=== PATIENT | female | born 1935 | race Caucasian/White ===

== ENCOUNTER 2018-02-27 10:53 | Observation (INO) | payer BC, OTHER ==
[~2018-02-27] VITALS: Ht 160 cm; Wt 86.2 kg
--- NOTE | 2018-02-27 11:40 | PHYS DOC ---
Past Medical History Past Medical History: GERD, High Cholesterol, Hypertension Past Surgical History: Cholecystectomy Alcohol Use: Rarely Drug Use: None Adult General Chief Complaint Chief Complaint: DIZZY/LIGHT HEADED HPI HPI 82-year-old female presents to ER via POV with her granddaughter Estelita for complaints of waking this morning and having dizziness. Patient denies any chest pain, palpitations, headache, or vision changes. Yesterday she felt fine and had ran errands with her son. Patient reports she woke this morning around 8 :00 and has dizziness which increases with position changes. Patient reports when she sits down dizziness somewhat subsides but doesn't completely go away. Denies any recent illness or travel. Patient denies urinary symptoms. She denies fever or chills. Review of Systems Review of Systems Constitutional: Denies fever or chills [] Eyes: Denies change in visual acuity, redness, or eye pain [] HENT: Denies nasal congestion or sore throat [] Respiratory: Denies cough or shortness of breath [] Cardiovascular: No additional information not addressed in HPI [] GI: Denies abdominal pain, nausea, vomiting, bloody stools or diarrhea [] : Denies dysuria or hematuria [] Musculoskeletal: Denies back pain or joint pain [] Integument: Denies rash or skin lesions [] Neurologic: Denies headache, focal weakness or sensory changes [] Endocrine: Denies polyuria or polydipsia [] All other systems were reviewed and found to be within normal limits, except as documented in this note. Current Medications Current Medications Current Medications Medications (Trade) Dose Ordered Sig/[facility] Start Time Stop Time Status Last Admin Dose Admin Acetaminophen (Tylenol) 650 mg PRN Q6HRS PRN 02/27/18 14:00 UNV Al Hydroxide/Mg Hydroxide (Mylanta Plus Xs) 30 ml PRN Q3HRS PRN 02/27/18 14:00 UNV Bisacodyl (Dulcolax Supp) 10 mg PRN DAILY PRN 02/27/18 14:00 UNV Calcium Carbonate/ Glycine (Tums) 500 mg PRN Q3HRS PRN 02/27/18 14:00 UNV Diazepam (Valium) 2 mg 1X ONCE 02/27/18 14:15 02/27/18 14:16 DC Hydrochlorothiazide (Hydrodiuril) 25 mg DAILY 02/28/18 09:00 UNV Ibuprofen (Motrin) 400 mg PRN Q6HRS PRN 02/27/18 14:00 UNV Magnesium Hydroxide (Milk Of Magnesia) 2,400 mg PRN Q12HR PRN 02/27/18 14:00 UNV Meclizine HCl (Antivert) 25 mg PRN Q6HRS PRN 02/27/18 14:15 UNV Morphine Sulfate (Morphine Sulfate) 1 mg PRN Q1HR PRN 02/27/18 14:00 UNV Ondansetron HCl (Zofran) 4 mg PRN Q6HRS PRN 02/27/18 14:00 UNV Oxycodone HCl (Roxicodone) 5 mg PRN Q3HRS PRN 02/27/18 14:00 UNV Pantoprazole Sodium (Protonix) 40 mg DAILYAC 02/28/18 07:30 UNV Prochlorperazine (Compazine) 25 mg PRN Q12HR PRN 02/27/18 14:00 UNV Prochlorperazine Edisylate (Compazine) 10 mg PRN Q6HRS PRN 02/27/18 14:00 UNV Simvastatin (Zocor) 40 mg QHS 02/27/18 21:00 UNV Sodium Chloride 1,000 ml @ 1,000 mls/hr 1X ONCE 02/27/18 11:45 02/27/18 12:44 DC 02/27/18 12:32 1,000 MLS/HR Allergies Allergies Allergies Coded Allergies Type Severity Reaction Last Updated Verified Penicillins Allergy Intermediate Nausea and Vomiting 02/27/18 Yes shrimp Allergy Intermediate Nausea and Vomiting 02/27/18 Yes Physical Exam Physical Exam Constitutional: Well developed, well nourished, no acute distress, non-toxic appearance. [] HENT: Normocephalic, atraumatic, bilateral external ears normal, oropharynx moist, no oral exudates, nose normal. [] Eyes: PERRLA, EOMI, conjunctiva normal, no discharge. [] Neck: Normal range of motion, no tenderness, supple, no stridor. [] Cardiovascular:Heart rate regular rhythm, no murmur [] Lungs & Thorax: Bilateral breath sounds clear to auscultation [] Abdomen: Bowel sounds normal, soft, no tenderness, no masses, no pulsatile masses. [] Skin: Warm, dry, no erythema, no rash. [] Back: No tenderness, no CVA tenderness. [] Extremities: No tenderness, no cyanosis, no clubbing, ROM intact, no edema. [] Neurologic: Alert and oriented X 3, normal motor function, normal sensory function, no focal deficits noted. [] Psychologic: Affect normal, judgement normal, mood normal. [] Current Patient Data Vital Signs Vital Signs Date Time Temp Pulse Resp B/P (MAP) Pulse Ox O2 Delivery O2 Flow Rate FiO2 02/27/18 13:15 82 18 98 02/27/18 11:12 97.8 148/78 (101) Room Air 97.8 Lab Values Laboratory Tests Test 02/27/18 12:30 02/27/18 12:50 White Blood Count 5.3 x10^3/uL (4.0-11.0) Red Blood Count 4.85 x10^6/uL (3.50-5.40) Hemoglobin 15.2 g/dL (12.0-15.5) Hematocrit 44.8 % (36.0-47.0) Mean Corpuscular Volume 92 fL (79-100) Mean Corpuscular Hemoglobin 31 pg (25-35) Mean Corpuscular Hemoglobin Concent 34 g/dL (31-37) Red Cell Distribution Width 13.1 % (11.5-14.5) Platelet Count 211 x10^3/uL (140-400) Neutrophils (%) (Auto) 65 % (31-73) Lymphocytes (%) (Auto) 25 % (24-48) Monocytes (%) (Auto) 8 % (0-9) Eosinophils (%) (Auto) 2 % (0-3) Basophils (%) (Auto) 1 % (0-3) Neutrophils # (Auto) 3.4 x10^3uL (1.8-7.7) Lymphocytes # (Auto) 1.3 x10^3/uL (1.0-4.8) Monocytes # (Auto) 0.4 x10^3/uL (0.0-1.1) Eosinophils # (Auto) 0.1 x10^3/uL (0.0-0.7) Basophils # (Auto) 0.0 x10^3/uL (0.0-0.2) Sodium Level 142 mmol/L (136-145) Potassium Level 4.1 mmol/L (3.5-5.1) Chloride Level 103 mmol/L (98-107) Carbon Dioxide Level 30 mmol/L (21-32) Anion Gap 9 (6-14) Blood Urea Nitrogen 14 mg/dL (7-20) Creatinine 0.8 mg/dL (0.6-1.0) Estimated GFR (Cockcroft-Gault) 68.5 BUN/Creatinine Ratio 18 (6-20) Glucose Level 119 mg/dL (70-99) H Calcium Level 9.4 mg/dL (8.5-10.1) Magnesium Level 2.0 mg/dL (1.8-2.4) Total Bilirubin 0.7 mg/dL (0.2-1.0) Aspartate Amino Transferase (AST) 19 U/L (15-37) Alanine Aminotransferase (ALT) 25 U/L (14-59) Alkaline Phosphatase 63 U/L (46-116) Troponin I Quantitative < 0.017 ng/mL (0.000-0.055) Total Protein 7.5 g/dL (6.4-8.2) Albumin 3.8 g/dL (3.4-5.0) Albumin/Globulin Ratio 1.0 (1.0-1.7) Urine Collection Type Unknown Urine Color Yellow Urine Clarity Cloudy Urine pH 6.5 Urine Specific [place] 1.015 Urine Protein Negative mg/dL (NEG-TRACE) Urine Glucose (UA) Negative mg/dL (NEG) Urine Ketones (Stick) Negative mg/dL (NEG) Urine Blood Negative (NEG) Urine Nitrite Negative (NEG) Urine Bilirubin Negative (NEG) Urine Urobilinogen Dipstick 0.2 mg/dL (0.2 mg/dL) Urine Leukocyte Esterase Large (NEG) Urine RBC 1-2 /HPF (0-2) Urine WBC 5-10 /HPF (0-4) Urine Squamous Epithelial Cells Mod /LPF Urine Transitional Epithelial Cells Few /LPF Urine Renal Epithelial Cells Occ /LPF Urine Bacteria 0 /HPF (0-FEW) Laboratory Tests 02/27/18 12:30 Laboratory Tests 02/27/18 12:30 EKG EKG [] Radiology/Procedures Radiology/Procedures [] Course & Med Decision Making Course & Med Decision Making Pertinent Labs and Imaging studies reviewed. (See chart for details) [] Dragon Disclaimer Dragon Disclaimer This electronic medical record was generated, in whole or in part, using a voice recognition dictation system. Departure Departure Impression: Primary Impression: Dizziness Disposition: ADMITTED INPATIENT Admitting Physician: Jada Alvarenga Condition: STABLE Referrals: JESSY VALENZUELA MD (PCP) MARIBETH ARGUETA APRN Feb 27, 2018 11:40
[2018-02-27] MEDS ORDERED: IV NORMAL SALINE 1000ML BAG 1,000 ML IV ONE (11:45)
--- NOTE | 2018-02-27 12:04 | RAD ---
CT of the head without contrast, 02/27/2018: HISTORY: Dizziness There is mild cerebral atrophy. There are mild deep white matter lucencies bilaterally suggesting chronic ischemic change. The ventricles are within normal limits in size. There is no shift of the midline structures. There is no evidence of acute intracranial hemorrhage or mass effect. IMPRESSION: 1. Mild bilateral deep white matter lucencies compatible with chronic ischemic change. 2. No acute intracranial abnormality is detected. PQRS Compliance Statement: One or more of the following individualized dose reduction techniques were utilized for this examination: 1. Automated exposure control 2. Adjustment of the mA and/or kV according to patient size 3. Use of iterative reconstruction technique Electronically signed by: Everton Ochoa MD (02/27/2018 12:01 PM) [facility]
--- NOTE | 2018-02-27 12:14 | EKG ---
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
[2018-02-27 12:43] LABS: BASO % 1 % (0-3); EOS # 0.1 x10^3/uL (0.0-0.7); EOS % 2 % (0-3); HEMATOCRIT 44.8 % (36.0-47.0); HEMOGLOBIN 15.2 g/dL (12.0-15.5); LYMPH # 1.3 x10^3/uL (1.0-4.8); LYMPH % 25 % (24-48); MEAN CORPUSCULAR HEMOGLOBIN 31 pg (25-35); MEAN CORPUSCULAR HGB CONC 34 g/dL (31-37); MEAN CORPUSCULAR VOLUME 92 fL (79-100); MONO # 0.4 x10^3/uL (0.0-1.1); MONO % 8 % (0-9); NEUT # 3.4 x10^3uL (1.8-7.7); NEUT % 65 % (31-73); PLATELET COUNT 211 x10^3/uL (140-400); RED BLOOD COUNT 4.85 x10^6/uL (3.50-5.40); RED CELL DISTRIBUTION WIDTH 13.1 % (11.5-14.5); WHITE BLOOD COUNT 5.3 x10^3/uL (4.0-11.0)
[2018-02-27 13:00] LABS: BILIRUBIN,URINE NEGATIVE (NEG); CLARITY,URINE CLOUDY; COLOR,URINE YELLOW; NITRITE,URINE NEGATIVE (NEG); PH,URINE 6.5; PROTEIN,URINE NEGATIVE (NEG-TRACE); UROBILINOGEN,URINE 0.2 mg/dL (0.2 mg/dL)
[2018-02-27 13:10] LABS: CALCIUM 9.4 mg/dL (8.5-10.1); CREATININE 0.8 mg/dL (0.6-1.0); GFR 68.5; POTASSIUM 4.1 mmol/L (3.5-5.1)
[2018-02-27 13:12] LABS: BACTERIA,URINE 0 /HPF (0-FEW); SQUAMOUS EPITHELIAL CELL,UR MOD /LPF
[2018-02-27 13:15] LABS: ALBUMIN 3.8 g/dL (3.4-5.0); TOTAL BILIRUBIN 0.7 mg/dL (0.2-1.0); TOTAL PROTEIN 7.5 g/dL (6.4-8.2)
[2018-02-27] MEDS ORDERED: oxyCODONE IR 5 MG TABLET PO PRN (14:00)
[2018-02-27] MEDS ORDERED: MORPHINE SULFATE 2 MG/ML VIAL. IV PRN (14:00)
[2018-02-27] MEDS ORDERED: ACETAMINOPHEN 325 MG TABLET. PO PRN (14:00)
[2018-02-27] MEDS ORDERED: MECLIZINE HCL 12.5 MG TABLET. PO PRN ×2 (14:00→14:15)
[2018-02-27] MEDS ORDERED: BISACODYL 10 MG SUPP.RECT. PR PRN (14:00)
[2018-02-27] MEDS ORDERED: CALCIUM CARBONATE 500 MG TAB.CHEW PO PRN (14:00)
[2018-02-27] MEDS ORDERED: MAG HYDROX/ALUMINUM HYD/SIMETH 30 ML ORAL.SUSP PO PRN (14:00)
[2018-02-27] MEDS ORDERED: ONDANSETRON PF 4 MG/2 ML VIAL. IV PRN (14:00)
[2018-02-27] MEDS ORDERED: IBUPROFEN 400 MG TABLET. PO PRN (14:00)
[2018-02-27] MEDS ORDERED: PROCHLORPERAZINE 25 MG SUPP.RECT. PR PRN (14:00)
[2018-02-27] MEDS ORDERED: MAGNESIUM HYDROXIDE 2,400 MG/30 ML ORAL.SUSP. PO PRN (14:00)
[2018-02-27] MEDS ORDERED: PROCHLORPERAZINE 10 MG/2 ML VIAL. IV PRN (14:00)
--- NOTE | 2018-02-27 14:07 | PDOC1 ---
History and Physical Date of Admission Date of Admission DATE: 02/27/18 TIME: 14:03 Identification/Chief Complaint Chief Complaint Dizziness Source Source: Caregiver, Chart review, Patient History of Present Illness History of Present Illness 82-year-old female accompanied by granddaughter today, only takes 3 medications at home include HCTZ 25 simvastatin 40 and Nexium tablet, PCP Dr. Andrew Garsia, woke up today 8 AM dizzy. Nonvertiginous in nature. Looking at old records diagnosed with hearing loss on a hearing aid. Denies tinnitus but claims itchy ears. Has not seen an ENT. CT of the head and lab work is negative but still Dizzy hence admitted with neurology to consult. Denies high MSG or salt intake, does drink coffee but decaffeinated Past Medical History Cardiovascular: HTN, Hyperlipidemia Past Surgical History Past Surgical History: No pertinent history Family History Family History: Hypertension Social History Smoke: No ALCOHOL: none Drugs: None Current Medications Current Medications Current Medications Sodium Chloride 1,000 ml @ 1,000 mls/hr 1X ONCE IV Last administered on 02/27at 12:32; Start 02/27/18 at 11:45; Stop 02/27/18 at 12:44; Status DC Allergies Allergies: Coded Allergies: Penicillins (Verified Allergy, Intermediate, Nausea and Vomiting, 02/27/18 ) shrimp (Verified Allergy, Intermediate, Nausea and Vomiting, 02/27/18) ROS Review of System As per history of present illness, the rest of ROS 14 point negative Physical Exam General: Alert, Oriented X3, Cooperative, No acute distress HEENT: Atraumatic, PERRLA, EOMI Lungs: Clear to auscultation, Normal air movement Heart: S1S2, RRR, no thrills, no rubs, no gallops, no murmurs Cardiovascular: S1, S2 Breasts: Normal, Rt breast nml w/o mass, Lt breast nml w/o mass, Nipples normal Abdomen: Normal bowel sounds, Soft, No tenderness, No hepatosplenomegaly, No masses Rectal Exam: not examined PELVIC: Nml ext genitalia Extremities: No clubbing, No cyanosis, No edema, Normal pulses, No tenderness/ swelling Skin: No rashes, No breakdown, No significant lesion Neuro: Normal gait, Normal speech, Strength at 5/5 X4 ext, Normal tone, Sensation intact, Cranial nerves 3-12 NL, Reflexes 2+ Psych/Mental Status: Mental status NL, Mood NL Vitals Vitals Vital Signs Date Time Temp Pulse Resp B/P (MAP) Pulse Ox O2 Delivery O2 Flow Rate FiO2 02/27/18 13:15 82 18 98 02/27/18 11:12 97.8 148/78 (101) Room Air 97.8 Labs Labs Laboratory Tests Test 02/27/18 12:30 02/27/18 12:50 White Blood Count 5.3 x10^3/uL (4.0-11.0) Red Blood Count 4.85 x10^6/uL (3.50-5.40) Hemoglobin 15.2 g/dL (12.0-15.5) Hematocrit 44.8 % (36.0-47.0) Mean Corpuscular Volume 92 fL (79-100) Mean Corpuscular Hemoglobin 31 pg (25-35) Mean Corpuscular Hemoglobin Concent 34 g/dL (31-37) Red Cell Distribution Width 13.1 % (11.5-14.5) Platelet Count 211 x10^3/uL (140-400) Neutrophils (%) (Auto) 65 % (31-73) Lymphocytes (%) (Auto) 25 % (24-48) Monocytes (%) (Auto) 8 % (0-9) Eosinophils (%) (Auto) 2 % (0-3) Basophils (%) (Auto) 1 % (0-3) Neutrophils # (Auto) 3.4 x10^3uL (1.8-7.7) Lymphocytes # (Auto) 1.3 x10^3/uL (1.0-4.8) Monocytes # (Auto) 0.4 x10^3/uL (0.0-1.1) Eosinophils # (Auto) 0.1 x10^3/uL (0.0-0.7) Basophils # (Auto) 0.0 x10^3/uL (0.0-0.2) Sodium Level 142 mmol/L (136-145) Potassium Level 4.1 mmol/L (3.5-5.1) Chloride Level 103 mmol/L (98-107) Carbon Dioxide Level 30 mmol/L (21-32) Anion Gap 9 (6-14) Blood Urea Nitrogen 14 mg/dL (7-20) Creatinine 0.8 mg/dL (0.6-1.0) Estimated GFR (Cockcroft-Gault) 68.5 BUN/Creatinine Ratio 18 (6-20) Glucose Level 119 mg/dL (70-99) Calcium Level 9.4 mg/dL (8.5-10.1) Magnesium Level 2.0 mg/dL (1.8-2.4) Total Bilirubin 0.7 mg/dL (0.2-1.0) Aspartate Amino Transf (AST/SGOT) 19 U/L (15-37) Alanine Aminotransferase (ALT/SGPT) 25 U/L (14-59) Alkaline Phosphatase 63 U/L (46-116) Troponin I Quantitative < 0.017 ng/mL (0.000-0.055) Total Protein 7.5 g/dL (6.4-8.2) Albumin 3.8 g/dL (3.4-5.0) Albumin/Globulin Ratio 1.0 (1.0-1.7) Urine Collection Type Unknown Urine Color Yellow Urine Clarity Cloudy Urine pH 6.5 Urine Specific [place] 1.015 Urine Protein Negative mg/dL (NEG-TRACE) Urine Glucose (UA) Negative mg/dL (NEG) Urine Ketones (Stick) Negative mg/dL (NEG) Urine Blood Negative (NEG) Urine Nitrite Negative (NEG) Urine Bilirubin Negative (NEG) Urine Urobilinogen Dipstick 0.2 mg/dL (0.2 mg/dL) Urine Leukocyte Esterase Large (NEG) Urine RBC 1-2 /HPF (0-2) Urine WBC 5-10 /HPF (0-4) Urine Squamous Epithelial Cells Mod /LPF Urine Transitional Epithelial Cells Few /LPF Urine Renal Epithelial Cells Occ /LPF Urine Bacteria 0 /HPF (0-FEW) Laboratory Tests Test 02/27/18 12:30 02/27/18 12:50 White Blood Count 5.3 x10^3/uL (4.0-11.0) Red Blood Count 4.85 x10^6/uL (3.50-5.40) Hemoglobin 15.2 g/dL (12.0-15.5) Hematocrit 44.8 % (36.0-47.0) Mean Corpuscular Volume 92 fL (79-100) Mean Corpuscular Hemoglobin 31 pg (25-35) Mean Corpuscular Hemoglobin Concent 34 g/dL (31-37) Red Cell Distribution Width 13.1 % (11.5-14.5) Platelet Count 211 x10^3/uL (140-400) Neutrophils (%) (Auto) 65 % (31-73) Lymphocytes (%) (Auto) 25 % (24-48) Monocytes (%) (Auto) 8 % (0-9) Eosinophils (%) (Auto) 2 % (0-3) Basophils (%) (Auto) 1 % (0-3) Neutrophils # (Auto) 3.4 x10^3uL (1.8-7.7) Lymphocytes # (Auto) 1.3 x10^3/uL (1.0-4.8) Monocytes # (Auto) 0.4 x10^3/uL (0.0-1.1) Eosinophils # (Auto) 0.1 x10^3/uL (0.0-0.7) Basophils # (Auto) 0.0 x10^3/uL (0.0-0.2) Sodium Level 142 mmol/L (136-145) Potassium Level 4.1 mmol/L (3.5-5.1) Chloride Level 103 mmol/L (98-107) Carbon Dioxide Level 30 mmol/L (21-32) Anion Gap 9 (6-14) Blood Urea Nitrogen 14 mg/dL (7-20) Creatinine 0.8 mg/dL (0.6-1.0) Estimated GFR (Cockcroft-Gault) 68.5 BUN/Creatinine Ratio 18 (6-20) Glucose Level 119 mg/dL (70-99) Calcium Level 9.4 mg/dL (8.5-10.1) Magnesium Level 2.0 mg/dL (1.8-2.4) Total Bilirubin 0.7 mg/dL (0.2-1.0) Aspartate Amino Transf (AST/SGOT) 19 U/L (15-37) Alanine Aminotransferase (ALT/SGPT) 25 U/L (14-59) Alkaline Phosphatase 63 U/L (46-116) Troponin I Quantitative < 0.017 ng/mL (0.000-0.055) Total Protein 7.5 g/dL (6.4-8.2) Albumin 3.8 g/dL (3.4-5.0) Albumin/Globulin Ratio 1.0 (1.0-1.7) Urine Collection Type Unknown Urine Color Yellow Urine Clarity Cloudy Urine pH 6.5 Urine Specific [place] 1.015 Urine Protein Negative mg/dL (NEG-TRACE) Urine Glucose (UA) Negative mg/dL (NEG) Urine Ketones (Stick) Negative mg/dL (NEG) Urine Blood Negative (NEG) Urine Nitrite Negative (NEG) Urine Bilirubin Negative (NEG) Urine Urobilinogen Dipstick 0.2 mg/dL (0.2 mg/dL) Urine Leukocyte Esterase Large (NEG) Urine RBC 1-2 /HPF (0-2) Urine WBC 5-10 /HPF (0-4) Urine Squamous Epithelial Cells Mod /LPF Urine Transitional Epithelial Cells Few /LPF Urine Renal Epithelial Cells Occ /LPF Urine Bacteria 0 /HPF (0-FEW) VTE Prophylaxis Ordered VTE Prophylaxis Devices: Yes VTE Pharmacological Prophylaxi: Yes Assessment/Plan Assessment/Plan Dizziness with diagnosis of hearing loss-on hearing aid Differentials include Mnire's disease So far CT head is negative, blood pressure is okay Can check orthostatics Neurology consulted Continue HCTZ which can be part of Mnire's disease treatment Avoid high salt intake MSG or caffeinated drinks Denies any recent stresses in the family Hypertension, controlled Dyslipidemia on a statin GERD on nexium Penicillin allergy and shrimp allergy-unknown reaction Obesity BMI 34 Plan: as above Observation status If it is Mnire's, trial of low-dose benzodiazepine can sometimes be helpful RADHA BEJARANO MD Feb 27, 2018 14:07
[2018-02-27] MEDS ORDERED: diazePAM 2 MG TABLET PO ONE (14:15)
[2018-02-27 15:45] VITALS: BP 170/82
[2018-02-27] MEDS ORDERED: MULT1TAB52 PO (17:23)
[2018-02-27] MEDS ORDERED: ESOM20CA PO (17:23)
[2018-02-27] MEDS: PANTOPRAZOLE 40 MG TABLET.DR. PO SCH (17:51)
[2018-02-27] MEDS: hydroCHLOROthiazide 25 MG TABLET PO SCH (17:51)
[2018-02-27 19:00] VITALS: BP 144/63
[2018-02-27] MEDS ORDERED: SIMVASTATIN 40 MG TABLET. PO SCH (21:00)
[2018-02-27 23:00] VITALS: BP 126/67
[2018-02-28 03:00] VITALS: BP 109/50
[2018-02-28 05:59] LABS: CALCIUM 8.7 mg/dL (8.5-10.1); CREATININE 0.8 mg/dL (0.6-1.0); GFR 68.5; POTASSIUM 3.6 mmol/L (3.5-5.1)
[2018-02-28 06:04] LABS: BASO % 1 % (0-3); EOS # 0.1 x10^3/uL (0.0-0.7); EOS % 2 % (0-3); HEMATOCRIT 40.7 % (36.0-47.0); HEMOGLOBIN 13.9 g/dL (12.0-15.5); LYMPH # 1.8 x10^3/uL (1.0-4.8); LYMPH % 35 % (24-48); MEAN CORPUSCULAR HEMOGLOBIN 31 pg (25-35); MEAN CORPUSCULAR HGB CONC 34 g/dL (31-37); MEAN CORPUSCULAR VOLUME 92 fL (79-100); MONO # 0.5 x10^3/uL (0.0-1.1); MONO % 10 % (0-9); NEUT # 2.7 x10^3uL (1.8-7.7); NEUT % 52 % (31-73); PLATELET COUNT 196 x10^3/uL (140-400); RED BLOOD COUNT 4.44 x10^6/uL (3.50-5.40); RED CELL DISTRIBUTION WIDTH 13.1 % (11.5-14.5); WHITE BLOOD COUNT 5.1 x10^3/uL (4.0-11.0)
[2018-02-28 07:00] VITALS: BP 126/54
[2018-02-28] MEDS: PANTOPRAZOLE 40 MG TABLET.DR. PO SCH (09:09)
[2018-02-28] MEDS: hydroCHLOROthiazide 25 MG TABLET PO SCH (09:09)
[2018-02-28 11:00] VITALS: BP 134/66
--- NOTE | 2018-02-28 11:15 | PDOC ---
PROGRESS NOTES Chief Complaint Chief Complaint Dizziness UTI Hypertension Dyslipidemi GERD Obesity BMI 34 History of Present Illness History of Present Illness Pt seen and examine Dw technician assistant present Improved symptoms Vitals Vitals Vital Signs Date Time Temp Pulse Resp B/P (MAP) Pulse Ox O2 Delivery O2 Flow Rate FiO2 02/28/18 08:00 Room Air 02/28/18 07:00 97.6 84 20 126/54 (78) 94 97.6 Physical Exam General: Alert, Oriented X3, Cooperative, No acute distress Heart: Regular rate, Normal S1 Lungs: Clear Abdomen: Normal bowel sounds, Soft, No tenderness, No hepatosplenomegaly, No masses Extremities: No clubbing, No cyanosis, No edema, Normal pulses, No tenderness/ swelling Skin: No rashes, No breakdown, No significant lesion Labs LABS Laboratory Tests Test 02/27/18 12:30 02/27/18 12:50 02/28/18 05:00 White Blood Count 5.3 x10^3/uL (4.0-11.0) 5.1 x10^3/uL (4.0-11.0) Red Blood Count 4.85 x10^6/uL (3.50-5.40) 4.44 x10^6/uL (3.50-5.40) Hemoglobin 15.2 g/dL (12.0-15.5) 13.9 g/dL (12.0-15.5) Hematocrit 44.8 % (36.0-47.0) 40.7 % (36.0-47.0) Mean Corpuscular Volume 92 fL (79-100) 92 fL (79-100) Mean Corpuscular Hemoglobin 31 pg (25-35) 31 pg (25-35) Mean Corpuscular Hemoglobin Concent 34 g/dL (31-37) 34 g/dL (31-37) Red Cell Distribution Width 13.1 % (11.5-14.5) 13.1 % (11.5-14.5) Platelet Count 211 x10^3/uL (140-400) 196 x10^3/uL (140-400) Neutrophils (%) (Auto) 65 % (31-73) 52 % (31-73) Lymphocytes (%) (Auto) 25 % (24-48) 35 % (24-48) Monocytes (%) (Auto) 8 % (0-9) 10 % (0-9) Eosinophils (%) (Auto) 2 % (0-3) 2 % (0-3) Basophils (%) (Auto) 1 % (0-3) 1 % (0-3) Neutrophils # (Auto) 3.4 x10^3uL (1.8-7.7) 2.7 x10^3uL (1.8-7.7) Lymphocytes # (Auto) 1.3 x10^3/uL (1.0-4.8) 1.8 x10^3/uL (1.0-4.8) Monocytes # (Auto) 0.4 x10^3/uL (0.0-1.1) 0.5 x10^3/uL (0.0-1.1) Eosinophils # (Auto) 0.1 x10^3/uL (0.0-0.7) 0.1 x10^3/uL (0.0-0.7) Basophils # (Auto) 0.0 x10^3/uL (0.0-0.2) 0.0 x10^3/uL (0.0-0.2) Sodium Level 142 mmol/L (136-145) 143 mmol/L (136-145) Potassium Level 4.1 mmol/L (3.5-5.1) 3.6 mmol/L (3.5-5.1) Chloride Level 103 mmol/L (98-107) 106 mmol/L (98-107) Carbon Dioxide Level 30 mmol/L (21-32) 27 mmol/L (21-32) Anion Gap 9 (6-14) 10 (6-14) Blood Urea Nitrogen 14 mg/dL (7-20) 11 mg/dL (7-20) Creatinine 0.8 mg/dL (0.6-1.0) 0.8 mg/dL (0.6-1.0) Estimated GFR (Cockcroft-Gault) 68.5 68.5 BUN/Creatinine Ratio 18 (6-20) Glucose Level 119 mg/dL (70-99) 110 mg/dL (70-99) Calcium Level 9.4 mg/dL (8.5-10.1) 8.7 mg/dL (8.5-10.1) Magnesium Level 2.0 mg/dL (1.8-2.4) Total Bilirubin 0.7 mg/dL (0.2-1.0) Aspartate Amino Transf (AST/SGOT) 19 U/L (15-37) Alanine Aminotransferase (ALT/SGPT) 25 U/L (14-59) Alkaline Phosphatase 63 U/L (46-116) Troponin I Quantitative < 0.017 ng/mL (0.000-0.055) Total Protein 7.5 g/dL (6.4-8.2) Albumin 3.8 g/dL (3.4-5.0) Albumin/Globulin Ratio 1.0 (1.0-1.7) Urine Collection Type Unknown Urine Color Yellow Urine Clarity Cloudy Urine pH 6.5 Urine Specific [place] 1.015 Urine Protein Negative mg/dL (NEG-TRACE) Urine Glucose (UA) Negative mg/dL (NEG) Urine Ketones (Stick) Negative mg/dL (NEG) Urine Blood Negative (NEG) Urine Nitrite Negative (NEG) Urine Bilirubin Negative (NEG) Urine Urobilinogen Dipstick 0.2 mg/dL (0.2 mg/dL) Urine Leukocyte Esterase Large (NEG) Urine RBC 1-2 /HPF (0-2) Urine WBC 5-10 /HPF (0-4) Urine Squamous Epithelial Cells Mod /LPF Urine Transitional Epithelial Cells Few /LPF Urine Renal Epithelial Cells Occ /LPF Urine Bacteria 0 /HPF (0-FEW) Review of Systems Review of Systems Denies blood in stool Denies fever Assessment and Plan Assessmemt and Plan Assessment: Dizziness UTI Hypertension Dyslipidemi GERD Obesity BMI 34 Plan: Ciprofloxacin PO Home meds Antiemetics prn Discharge if okay with neuro Follow up with PCP Comment Review of Relevant I have reviewed the following items kerri (where applicable) has been applied. Labs Laboratory Tests Test 02/27/18 12:30 02/27/18 12:50 02/28/18 05:00 White Blood Count 5.3 x10^3/uL (4.0-11.0) 5.1 x10^3/uL (4.0-11.0) Red Blood Count 4.85 x10^6/uL (3.50-5.40) 4.44 x10^6/uL (3.50-5.40) Hemoglobin 15.2 g/dL (12.0-15.5) 13.9 g/dL (12.0-15.5) Hematocrit 44.8 % (36.0-47.0) 40.7 % (36.0-47.0) Mean Corpuscular Volume 92 fL (79-100) 92 fL (79-100) Mean Corpuscular Hemoglobin 31 pg (25-35) 31 pg (25-35) Mean Corpuscular Hemoglobin Concent 34 g/dL (31-37) 34 g/dL (31-37) Red Cell Distribution Width 13.1 % (11.5-14.5) 13.1 % (11.5-14.5) Platelet Count 211 x10^3/uL (140-400) 196 x10^3/uL (140-400) Neutrophils (%) (Auto) 65 % (31-73) 52 % (31-73) Lymphocytes (%) (Auto) 25 % (24-48) 35 % (24-48) Monocytes (%) (Auto) 8 % (0-9) 10 % (0-9) Eosinophils (%) (Auto) 2 % (0-3) 2 % (0-3) Basophils (%) (Auto) 1 % (0-3) 1 % (0-3) Neutrophils # (Auto) 3.4 x10^3uL (1.8-7.7) 2.7 x10^3uL (1.8-7.7) Lymphocytes # (Auto) 1.3 x10^3/uL (1.0-4.8) 1.8 x10^3/uL (1.0-4.8) Monocytes # (Auto) 0.4 x10^3/uL (0.0-1.1) 0.5 x10^3/uL (0.0-1.1) Eosinophils # (Auto) 0.1 x10^3/uL (0.0-0.7) 0.1 x10^3/uL (0.0-0.7) Basophils # (Auto) 0.0 x10^3/uL (0.0-0.2) 0.0 x10^3/uL (0.0-0.2) Sodium Level 142 mmol/L (136-145) 143 mmol/L (136-145) Potassium Level 4.1 mmol/L (3.5-5.1) 3.6 mmol/L (3.5-5.1) Chloride Level 103 mmol/L (98-107) 106 mmol/L (98-107) Carbon Dioxide Level 30 mmol/L (21-32) 27 mmol/L (21-32) Anion Gap 9 (6-14) 10 (6-14) Blood Urea Nitrogen 14 mg/dL (7-20) 11 mg/dL (7-20) Creatinine 0.8 mg/dL (0.6-1.0) 0.8 mg/dL (0.6-1.0) Estimated GFR (Cockcroft-Gault) 68.5 68.5 BUN/Creatinine Ratio 18 (6-20) Glucose Level 119 mg/dL (70-99) 110 mg/dL (70-99) Calcium Level 9.4 mg/dL (8.5-10.1) 8.7 mg/dL (8.5-10.1) Magnesium Level 2.0 mg/dL (1.8-2.4) Total Bilirubin 0.7 mg/dL (0.2-1.0) Aspartate Amino Transf (AST/SGOT) 19 U/L (15-37) Alanine Aminotransferase (ALT/SGPT) 25 U/L (14-59) Alkaline Phosphatase 63 U/L (46-116) Troponin I Quantitative < 0.017 ng/mL (0.000-0.055) Total Protein 7.5 g/dL (6.4-8.2) Albumin 3.8 g/dL (3.4-5.0) Albumin/Globulin Ratio 1.0 (1.0-1.7) Urine Collection Type Unknown Urine Color Yellow Urine Clarity Cloudy Urine pH 6.5 Urine Specific [place] 1.015 Urine Protein Negative mg/dL (NEG-TRACE) Urine Glucose (UA) Negative mg/dL (NEG) Urine Ketones (Stick) Negative mg/dL (NEG) Urine Blood Negative (NEG) Urine Nitrite Negative (NEG) Urine Bilirubin Negative (NEG) Urine Urobilinogen Dipstick 0.2 mg/dL (0.2 mg/dL) Urine Leukocyte Esterase Large (NEG) Urine RBC 1-2 /HPF (0-2) Urine WBC 5-10 /HPF (0-4) Urine Squamous Epithelial Cells Mod /LPF Urine Transitional Epithelial Cells Few /LPF Urine Renal Epithelial Cells Occ /LPF Urine Bacteria 0 /HPF (0-FEW) Laboratory Tests Test 02/27/18 12:30 02/27/18 12:50 02/28/18 05:00 White Blood Count 5.3 x10^3/uL (4.0-11.0) 5.1 x10^3/uL (4.0-11.0) Red Blood Count 4.85 x10^6/uL (3.50-5.40) 4.44 x10^6/uL (3.50-5.40) Hemoglobin 15.2 g/dL (12.0-15.5) 13.9 g/dL (12.0-15.5) Hematocrit 44.8 % (36.0-47.0) 40.7 % (36.0-47.0) Mean Corpuscular Volume 92 fL (79-100) 92 fL (79-100) Mean Corpuscular Hemoglobin 31 pg (25-35) 31 pg (25-35) Mean Corpuscular Hemoglobin Concent 34 g/dL (31-37) 34 g/dL (31-37) Red Cell Distribution Width 13.1 % (11.5-14.5) 13.1 % (11.5-14.5) Platelet Count 211 x10^3/uL (140-400) 196 x10^3/uL (140-400) Neutrophils (%) (Auto) 65 % (31-73) 52 % (31-73) Lymphocytes (%) (Auto) 25 % (24-48) 35 % (24-48) Monocytes (%) (Auto) 8 % (0-9) 10 % (0-9) Eosinophils (%) (Auto) 2 % (0-3) 2 % (0-3) Basophils (%) (Auto) 1 % (0-3) 1 % (0-3) Neutrophils # (Auto) 3.4 x10^3uL (1.8-7.7) 2.7 x10^3uL (1.8-7.7) Lymphocytes # (Auto) 1.3 x10^3/uL (1.0-4.8) 1.8 x10^3/uL (1.0-4.8) Monocytes # (Auto) 0.4 x10^3/uL (0.0-1.1) 0.5 x10^3/uL (0.0-1.1) Eosinophils # (Auto) 0.1 x10^3/uL (0.0-0.7) 0.1 x10^3/uL (0.0-0.7) Basophils # (Auto) 0.0 x10^3/uL (0.0-0.2) 0.0 x10^3/uL (0.0-0.2) Sodium Level 142 mmol/L (136-145) 143 mmol/L (136-145) Potassium Level 4.1 mmol/L (3.5-5.1) 3.6 mmol/L (3.5-5.1) Chloride Level 103 mmol/L (98-107) 106 mmol/L (98-107) Carbon Dioxide Level 30 mmol/L (21-32) 27 mmol/L (21-32) Anion Gap 9 (6-14) 10 (6-14) Blood Urea Nitrogen 14 mg/dL (7-20) 11 mg/dL (7-20) Creatinine 0.8 mg/dL (0.6-1.0) 0.8 mg/dL (0.6-1.0) Estimated GFR (Cockcroft-Gault) 68.5 68.5 BUN/Creatinine Ratio 18 (6-20) Glucose Level 119 mg/dL (70-99) 110 mg/dL (70-99) Calcium Level 9.4 mg/dL (8.5-10.1) 8.7 mg/dL (8.5-10.1) Magnesium Level 2.0 mg/dL (1.8-2.4) Total Bilirubin 0.7 mg/dL (0.2-1.0) Aspartate Amino Transf (AST/SGOT) 19 U/L (15-37) Alanine Aminotransferase (ALT/SGPT) 25 U/L (14-59) Alkaline Phosphatase 63 U/L (46-116) Troponin I Quantitative < 0.017 ng/mL (0.000-0.055) Total Protein 7.5 g/dL (6.4-8.2) Albumin 3.8 g/dL (3.4-5.0) Albumin/Globulin Ratio 1.0 (1.0-1.7) Urine Collection Type Unknown Urine Color Yellow Urine Clarity Cloudy Urine pH 6.5 Urine Specific [place] 1.015 Urine Protein Negative mg/dL (NEG-TRACE) Urine Glucose (UA) Negative mg/dL (NEG) Urine Ketones (Stick) Negative mg/dL (NEG) Urine Blood Negative (NEG) Urine Nitrite Negative (NEG) Urine Bilirubin Negative (NEG) Urine Urobilinogen Dipstick 0.2 mg/dL (0.2 mg/dL) Urine Leukocyte Esterase Large (NEG) Urine RBC 1-2 /HPF (0-2) Urine WBC 5-10 /HPF (0-4) Urine Squamous Epithelial Cells Mod /LPF Urine Transitional Epithelial Cells Few /LPF Urine Renal Epithelial Cells Occ /LPF Urine Bacteria 0 /HPF (0-FEW) Medications Current Medications Sodium Chloride 1,000 ml @ 1,000 mls/hr 1X ONCE IV Last administered on 02/27at 12:32; Start 02/27/18 at 11:45; Stop 02/27/18 at 12:44; Status DC Ondansetron HCl (Zofran) 4 mg PRN Q6HRS PRN IV NAUSEA/VOMITING 1ST CHOICE; Start 02/27/18 at 14:00 Prochlorperazine Edisylate (Compazine) 10 mg PRN Q6HRS PRN IV NAUSEA/VOMITING 2ND CHOICE; Start 02/27/18 at 14:00 Prochlorperazine (Compazine) 25 mg PRN Q12HR PRN [place] NAUSEA/VOMITING; Start 05/05 at 14:00 Al Hydroxide/Mg Hydroxide (Mylanta Plus Xs) 30 ml PRN Q3HRS PRN PO HEARTBURN / GAS; Start 02/27/18 at 14:00 Calcium Carbonate/ Glycine (Tums) 500 mg PRN Q3HRS PRN PO UPSET STOMACH; Start 02/27/18 at 14:00 Oxycodone HCl (Roxicodone) 5 mg PRN Q3HRS PRN PO SEVERE PAIN; Start 02/27/18 at 14:00 Morphine Sulfate (Morphine Sulfate) 1 mg PRN Q1HR PRN IV PAIN MODERATE; Start 02/27/18 at 14:00 Acetaminophen (Tylenol) 650 mg PRN Q6HRS PRN PO Headaches, Temp > 101.5F; Start 02/27/18 at 14:00 Ibuprofen (Motrin) 400 mg PRN Q6HRS PRN PO MILD PAIN; Start 02/27/18 at 14:00 Magnesium Hydroxide (Milk Of Magnesia) 2,400 mg PRN Q12HR PRN PO CONSTIPATION; Start 02/27/18 at 14:00 Bisacodyl (Dulcolax Supp) 10 mg PRN DAILY PRN [place] CONSTIPATION; Start 02/27/18 at 14:00 Meclizine HCl (Antivert) 12.5 mg PRN Q6HRS PRN PO DIZZINESS; Start 02/27/18 at 14:00; Stop 02/27/18 at 14:03; Status DC Pantoprazole Sodium (Protonix) 40 mg DAILYAC PO Last administered on at 09:09; Start 02/27/18 at 16:00 Simvastatin (Zocor) 40 mg QHS PO Last administered on 02/27/18at 20:24; Start 02/27/18 at 21:00 Hydrochlorothiazide (Hydrodiuril) 25 mg DAILY PO Last administered on at 09:09; Start 02/27/18 at 15:30 Diazepam (Valium) 2 mg 1X ONCE PO ; Start 02/27/18 at 14:15; Stop 02/27/18 at 14:16; Status DC Meclizine HCl (Antivert) 25 mg PRN Q6HRS PRN PO DIZZINESS; Start 02/27/18 at 14:15 Influenza Virus Vaccine (Afluria Trivalent [id number] Syringe) 0.5 ml ONCE ONCE VAX IM Last administered on 02/28/18at 09:11; Start 02/27/18 at 17:15; Stop 02/27/18 at 17:16; Status DC Active Scripts Active Reported Multivitamins (Multivitamin) 1 Each Tablet 1 Tab PO DAILY Nexium Capsule (Esomeprazole Magnesium) 20 Mg Capsule.dr 1 Cap PO DAILY Vitals/I & O Vital Sign - Last 24 Hours 02/27/18 02/27/18 02/27/18 02/27/18 11:12 12:15 13:15 14:15 Temp 97.8 97.8 Pulse 89 82 82 84 Resp 18 18 18 18 B/P (MAP) 148/78 (101) Pulse Ox 96 97 98 98 O2 Delivery Room Air 02/27/18 02/27/18 02/27/18 02/27/18 15:10 15:45 16:14 19:00 Temp 96.6 97.9 96.6 97.9 Pulse 86 90 90 Resp 18 16 18 B/P (MAP) 170/82 (111) 144/63 (90) Pulse Ox 96 96 96 O2 Delivery Room Air Room Air 02/27/18 02/27/18 02/28/18 02/28/18 20:00 23:00 03:00 07:00 Temp 97.9 98.1 97.6 97.9 98.1 97.6 Pulse 86 84 84 Resp 18 20 B/P (MAP) 126/67 (86) 109/50 (69) 126/54 (78) Pulse Ox 97 96 94 O2 Delivery Room Air Room Air Room Air Room Air 02/28/18 08:00 O2 Delivery Room Air Intake and Output 02/27/18 02/27/18 02/28/18 15:00 23:00 07:00 Intake Total 1000 ml 200 ml 200 ml Output Total 0 ml Balance 1000 ml 200 ml 200 ml MALIK PACHECO III DO Feb 28, 2018 11:15
[2018-02-28 14:49] VITALS: BP 140/83
--- NOTE | 2018-02-28 15:34 | PDOC2 ---
NEUROLOGY CONSULT Date of Admission Date of Admission DATE: 02/28/18 TIME: 15:29 Reason for Consult Reason for Consult: vertigo Referring Physician Referring Physician: Dr. Alvarenga PCP: Dr. Garsia Source Source: Chart review, Patient History of Present Illness History of Present Illness The patient is an 82-year-old right-handed female who has had some hearing loss over the past several months. Early yesterday morning she awakened with true room-spinning vertigo, but without dysarthria, dysphagia, diplopia, numbness, weakness, cognitive change, or tinnitus. She feels fine now. She has had no prior episodes of vertigo. She cannot figure out any inciting or mitigating features. Past Medical History Cardiovascular: HTN, Hyperlipidemia Pulmonary: Pneumonia CENTRAL NERVOUS SYSTEM: Other (headache) GI: GERD Renal/: Urinary Incontinence Past Surgical History Past Surgical History: Cholecystectomy, Hysterectomy Family History Family History: No pertinent hx Social History Social History , lives on own, no alcohol or tobacco Current Medications Current Medications Current Medications Sodium Chloride 1,000 ml @ 1,000 mls/hr 1X ONCE IV Last administered on 02/27at 12:32; Start 02/27/18 at 11:45; Stop 02/27/18 at 12:44; Status DC Ondansetron HCl (Zofran) 4 mg PRN Q6HRS PRN IV NAUSEA/VOMITING 1ST CHOICE; Start 02/27/18 at 14:00; Stop 02/28/18 at 15:16; Status DC Prochlorperazine Edisylate (Compazine) 10 mg PRN Q6HRS PRN IV NAUSEA/VOMITING 2ND CHOICE; Start 02/27/18 at 14:00; Stop 02/28/18 at 15:16; Status DC Prochlorperazine (Compazine) 25 mg PRN Q12HR PRN [place] NAUSEA/VOMITING; Start 05/05 at 14:00; Stop 02/28/18 at 15:16; Status DC Al Hydroxide/Mg Hydroxide (Mylanta Plus Xs) 30 ml PRN Q3HRS PRN PO HEARTBURN / GAS; Start 02/27/18 at 14:00; Stop 02/28/18 at 15:16; Status DC Calcium Carbonate/ Glycine (Tums) 500 mg PRN Q3HRS PRN PO UPSET STOMACH; Start 02/27/18 at 14:00; Stop 02/28/18 at 15:16; Status DC Oxycodone HCl (Roxicodone) 5 mg PRN Q3HRS PRN PO SEVERE PAIN; Start 02/27/18 at 14:00; Stop 02/28/18 at 15:16; Status DC Morphine Sulfate (Morphine Sulfate) 1 mg PRN Q1HR PRN IV PAIN MODERATE; Start 02/27/18 at 14:00; Stop 02/28/18 at 15:16; Status DC Acetaminophen (Tylenol) 650 mg PRN Q6HRS PRN PO Headaches, Temp > 101.5F; Start 02/27/18 at 14:00; Stop 02/28/18 at 15:16; Status DC Ibuprofen (Motrin) 400 mg PRN Q6HRS PRN PO MILD PAIN; Start 02/27/18 at 14:00 ; Stop 02/28/18 at 15:16; Status DC Magnesium Hydroxide (Milk Of Magnesia) 2,400 mg PRN Q12HR PRN PO CONSTIPATION; Start 02/27/18 at 14:00; Stop 02/28/18 at 15:16; Status DC Bisacodyl (Dulcolax Supp) 10 mg PRN DAILY PRN [place] CONSTIPATION; Start 02/27/18 at 14:00; Stop 02/28/18 at 15:16; Status DC Meclizine HCl (Antivert) 12.5 mg PRN Q6HRS PRN PO DIZZINESS; Start 02/27/18 at 14:00; Stop 02/27/18 at 14:03; Status DC Pantoprazole Sodium (Protonix) 40 mg DAILYAC PO Last administered on at 09:09; Start 02/27/18 at 16:00; Stop 02/28/18 at 15:16; Status DC Simvastatin (Zocor) 40 mg QHS PO Last administered on 02/27/18at 20:24; Start 02/27/18 at 21:00; Stop 02/28/18 at 15:16; Status DC Hydrochlorothiazide (Hydrodiuril) 25 mg DAILY PO Last administered on at 09:09; Start 02/27/18 at 15:30; Stop 02/28/18 at 15:16; Status DC Diazepam (Valium) 2 mg 1X ONCE PO ; Start 02/27/18 at 14:15; Stop 02/27/18 at 14:16; Status DC Meclizine HCl (Antivert) 25 mg PRN Q6HRS PRN PO DIZZINESS; Start 02/27/18 at 14:15; Stop 02/28/18 at 15:16; Status DC Influenza Virus Vaccine (Afluria Trivalent [id number] Syringe) 0.5 ml ONCE ONCE VAX IM Last administered on 02/28/18at 09:11; Start 02/27/18 at 17:15; Stop 02/27/18 at 17:16; Status DC Active Scripts Active Reported Multivitamins (Multivitamin) 1 Each Tablet 1 Tab PO DAILY Nexium Capsule (Esomeprazole Magnesium) 20 Mg Capsule.dr 1 Cap PO DAILY Allergies Allergies: Coded Allergies: Penicillins (Verified Allergy, Intermediate, Nausea and Vomiting, 02/27/18 ) shrimp (Verified Allergy, Intermediate, Nausea and Vomiting, 02/27/18) ROS Review of System Patient denies fevers, chills, weight loss, dyspnea, angina, abdominal pain, change in bowels, or dysuria. 14-point review of systems is negative. Physical Exam Physical Examination General: Well-developed, well-nourished, white female, in no acute distress HEENT: Normocephalic andatraumatic. Tympanic membranes clear.Temporal arteries pulsatile and nontender. Neck: Supple without bruit, no meningismus Musculoskeletal: Stability:see neurologic. Gait exam:see neurologic. Tone:see neurologic. Strength:see neurologic. Neurological: Mental Status:intact, orientation, memory, attention span/concentration, language, fund of knowledge normal. Cranial Nerves:Pupils equal and reactive to light, extraocular movements areintact, visual morley are full to confrontation. No nystagmus elicited. Facial sensation is normal. There is no facial asymmetry. Vestibulo-ocular reflex is intact. Palate elvates and tongue protrudes in midline. All other cranial related problems are negative except as mentioned before.Reflexes:2+ and symmetric with flexor plantar responses. Motor:5/5 strength with normal tone and bulk. Coordination:Finger-nose finger and [id number] testing are normal. Rapid alternating movements and fine finger movements are intact. Gait:Normal, including tandem. Sensory:Normal pinprick, vibration, light touch, proprioception. Vitals VITALS Vital Signs Date Time Temp Pulse Resp B/P (MAP) Pulse Ox O2 Delivery O2 Flow Rate FiO2 02/28/18 14:49 97.7 96 20 140/83 (102) 96 Room Air 97.7 Labs Labs Laboratory Tests Test 02/27/18 12:30 02/27/18 12:50 02/28/18 05:00 White Blood Count 5.3 x10^3/uL (4.0-11.0) 5.1 x10^3/uL (4.0-11.0) Red Blood Count 4.85 x10^6/uL (3.50-5.40) 4.44 x10^6/uL (3.50-5.40) Hemoglobin 15.2 g/dL (12.0-15.5) 13.9 g/dL (12.0-15.5) Hematocrit 44.8 % (36.0-47.0) 40.7 % (36.0-47.0) Mean Corpuscular Volume 92 fL (79-100) 92 fL (79-100) Mean Corpuscular Hemoglobin 31 pg (25-35) 31 pg (25-35) Mean Corpuscular Hemoglobin Concent 34 g/dL (31-37) 34 g/dL (31-37) Red Cell Distribution Width 13.1 % (11.5-14.5) 13.1 % (11.5-14.5) Platelet Count 211 x10^3/uL (140-400) 196 x10^3/uL (140-400) Neutrophils (%) (Auto) 65 % (31-73) 52 % (31-73) Lymphocytes (%) (Auto) 25 % (24-48) 35 % (24-48) Monocytes (%) (Auto) 8 % (0-9) 10 % (0-9) Eosinophils (%) (Auto) 2 % (0-3) 2 % (0-3) Basophils (%) (Auto) 1 % (0-3) 1 % (0-3) Neutrophils # (Auto) 3.4 x10^3uL (1.8-7.7) 2.7 x10^3uL (1.8-7.7) Lymphocytes # (Auto) 1.3 x10^3/uL (1.0-4.8) 1.8 x10^3/uL (1.0-4.8) Monocytes # (Auto) 0.4 x10^3/uL (0.0-1.1) 0.5 x10^3/uL (0.0-1.1) Eosinophils # (Auto) 0.1 x10^3/uL (0.0-0.7) 0.1 x10^3/uL (0.0-0.7) Basophils # (Auto) 0.0 x10^3/uL (0.0-0.2) 0.0 x10^3/uL (0.0-0.2) Sodium Level 142 mmol/L (136-145) 143 mmol/L (136-145) Potassium Level 4.1 mmol/L (3.5-5.1) 3.6 mmol/L (3.5-5.1) Chloride Level 103 mmol/L (98-107) 106 mmol/L (98-107) Carbon Dioxide Level 30 mmol/L (21-32) 27 mmol/L (21-32) Anion Gap 9 (6-14) 10 (6-14) Blood Urea Nitrogen 14 mg/dL (7-20) 11 mg/dL (7-20) Creatinine 0.8 mg/dL (0.6-1.0) 0.8 mg/dL (0.6-1.0) Estimated GFR (Cockcroft-Gault) 68.5 68.5 BUN/Creatinine Ratio 18 (6-20) Glucose Level 119 mg/dL (70-99) 110 mg/dL (70-99) Calcium Level 9.4 mg/dL (8.5-10.1) 8.7 mg/dL (8.5-10.1) Magnesium Level 2.0 mg/dL (1.8-2.4) Total Bilirubin 0.7 mg/dL (0.2-1.0) Aspartate Amino Transf (AST/SGOT) 19 U/L (15-37) Alanine Aminotransferase (ALT/SGPT) 25 U/L (14-59) Alkaline Phosphatase 63 U/L (46-116) Troponin I Quantitative < 0.017 ng/mL (0.000-0.055) Total Protein 7.5 g/dL (6.4-8.2) Albumin 3.8 g/dL (3.4-5.0) Albumin/Globulin Ratio 1.0 (1.0-1.7) Urine Collection Type Unknown Urine Color Yellow Urine Clarity Cloudy Urine pH 6.5 Urine Specific [place] 1.015 Urine Protein Negative mg/dL (NEG-TRACE) Urine Glucose (UA) Negative mg/dL (NEG) Urine Ketones (Stick) Negative mg/dL (NEG) Urine Blood Negative (NEG) Urine Nitrite Negative (NEG) Urine Bilirubin Negative (NEG) Urine Urobilinogen Dipstick 0.2 mg/dL (0.2 mg/dL) Urine Leukocyte Esterase Large (NEG) Urine RBC 1-2 /HPF (0-2) Urine WBC 5-10 /HPF (0-4) Urine Squamous Epithelial Cells Mod /LPF Urine Transitional Epithelial Cells Few /LPF Urine Renal Epithelial Cells Occ /LPF Urine Bacteria 0 /HPF (0-FEW) Laboratory Tests Test 02/28/18 05:00 White Blood Count 5.1 x10^3/uL (4.0-11.0) Red Blood Count 4.44 x10^6/uL (3.50-5.40) Hemoglobin 13.9 g/dL (12.0-15.5) Hematocrit 40.7 % (36.0-47.0) Mean Corpuscular Volume 92 fL (79-100) Mean Corpuscular Hemoglobin 31 pg (25-35) Mean Corpuscular Hemoglobin Concent 34 g/dL (31-37) Red Cell Distribution Width 13.1 % (11.5-14.5) Platelet Count 196 x10^3/uL (140-400) Neutrophils (%) (Auto) 52 % (31-73) Lymphocytes (%) (Auto) 35 % (24-48) Monocytes (%) (Auto) 10 % (0-9) Eosinophils (%) (Auto) 2 % (0-3) Basophils (%) (Auto) 1 % (0-3) Neutrophils # (Auto) 2.7 x10^3uL (1.8-7.7) Lymphocytes # (Auto) 1.8 x10^3/uL (1.0-4.8) Monocytes # (Auto) 0.5 x10^3/uL (0.0-1.1) Eosinophils # (Auto) 0.1 x10^3/uL (0.0-0.7) Basophils # (Auto) 0.0 x10^3/uL (0.0-0.2) Sodium Level 143 mmol/L (136-145) Potassium Level 3.6 mmol/L (3.5-5.1) Chloride Level 106 mmol/L (98-107) Carbon Dioxide Level 27 mmol/L (21-32) Anion Gap 10 (6-14) Blood Urea Nitrogen 11 mg/dL (7-20) Creatinine 0.8 mg/dL (0.6-1.0) Estimated GFR (Cockcroft-Gault) 68.5 Glucose Level 110 mg/dL (70-99) Calcium Level 8.7 mg/dL (8.5-10.1) Images Images CT of the head without contrast, 02/27/2018: HISTORY: Dizziness There is mild cerebral atrophy. There are mild deep white matter lucencies bilaterally suggesting chronic ischemic change. The ventricles are within normal limits in size. There is no shift of the midline structures. There is no evidence of acute intracranial hemorrhage or mass effect. IMPRESSION: 1. Mild bilateral deep white matter lucencies compatible with chronic ischemic change. 2. No acute intracranial abnormality is detected. Assessment/Plan Assessment/Plan Impression: Peripheral vertigo, most likely just vestibular neuronitis, as this was a single episode and I therefore doubt Mnire's disease or positional vertigo. She is already following with audiology regarding her hearing loss Recommendations: Okay for discharge Outpatient referral to ear nose and throat if symptoms recur. Continue following with audiology. Thank you for letting me help with the patient's care. JIMI PABLO MD Feb 28, 2018 15:34
--- NOTE | 2018-03-05 12:03 | DS ---
DATE OF DISCHARGE: 02/28/2018 ADMISSION DIAGNOSIS: Dizziness. DISCHARGE DIAGNOSES: 1. Resolving vestibular dysfunction. 2. Resolving urinary tract infection. HOSPITAL COURSE: The patient is a pleasant elderly female who presented with dizziness. She was admitted. We consulted Neurology, did some imaging. Gave her some fluids and antibiotics for her UTI. Her workup was negative. She returned to baseline, we discharged home. DISPOSITION: Home. ACTIVITY: As tolerated. DIET: Low sodium. MEDICATIONS: Please see the MRAD. TOTAL TIME ON DISCHARGE: 38 minutes. MALIK PACHECO DO DR: RASHAUN/faviola JOB#: [id number] / [id number]
== END 2018-02-28 15:15 | disposition home or self-care (01) ==
LOC: ER 10:53 → INTOOBSV 14:17 → 5 SOUTH 14:17
PROVIDERS: ADMIT Internal Medicine; ATTEND Internal Medicine
DX: R42 Dizziness and giddiness (principal); N39.0 Urinary tract infection, site not specified; E66.9 Obesity, unspecified; E78.00 Pure hypercholesterolemia, unspecified; E78.5 Hyperlipidemia, unspecified; H91.90 Unspecified hearing loss, unspecified ear; I10 Essential (primary) hypertension; K21.9 Gastro-esophageal reflux disease without esophagitis; Z68.34 Body mass index [BMI] 34.0-34.9, adult; Z82.49 Family history of ischemic heart disease and other diseases of the circulatory system; Z90.710 Acquired absence of both cervix and uterus; Z87.01 Personal history of pneumonia (recurrent); Z79.899 Other long term (current) drug therapy; Z90.49 Acquired absence of other specified parts of digestive tract
CPT/HCPCS: 36415; 70450; 80048; 80053; 81001; 83735; 84484; 85025; 87086; 90471; 90756; 93005; 96360; 97162; 99285; G0378; J7030; 96361; G0379; Q2035

== ENCOUNTER → 2018-08-17 | Outpatient (CLI) | payer BC ==
[~2018-08-17] MED LIST: ESOM20CA PO; MULT1TAB52 PO
--- NOTE | 2018-08-17 14:42 | KCIC ---
EXAM: Brain MRI without contrast. HISTORY: Dizziness. TECHNIQUE: Multiplanar, multisequence magnetic resonance imaging of the brain was performed without contrast. COMPARISON: Head CT dated 02/27/2018. FINDINGS: There is no restricted diffusion to suggest acute or subacute infarction. There are small subtle areas of slight increased signal on diffusion weighted images within the left cerebral white matter, likely due to T2 shine through artifact. There are multiple scattered focal areas of T2/FLAIR hyperintensity within the cerebral white matter, most commonly due to chronic small vessel disease. There is a focus of encephalomalacia within the right cerebellum, likely due to chronic infarction. There is also a chronic lacunar infarct within the left caudate nucleus. There is mild cerebral volume loss. The orbits are unremarkable. The paranasal sinuses are unremarkable. There is a small amount of fluid within the mastoid air cells. There are normal flow voids within the cerebral vessels. No calvarial lesion is seen. There is a focus of suspected chronic microhemorrhage within the left cerebellum. IMPRESSION: 1. No acute intracranial finding. 2. Nonspecific T2/FLAIR hyperintense lesions within the cerebral white matter, most commonly due to chronic small vessel disease. 3. Chronic infarcts within the left caudate nucleus and right cerebellum. There is also a focus of suspected chronic hemorrhage within the left cerebellum. Electronically signed by: Kacie Sheehan MD (08/17/2018 2:40 PM) [facility]
--- NOTE | 2018-08-17 14:57 | KCIC ---
Carotid Doppler ultrasound INDICATION: Persistent dizziness. History of hypertension and paroxysmal atrial fibrillation.. COMPARISON: None are available TECHNIQUE: Color, grayscale and doppler ultrasound images obtained of the carotid system bilaterally. Percent stenosis is estimated using criteria that correlates with NASCET methodology. FINDINGS: Peak systolic velocities are as follows in cm/s: Right Carotid System: CCA PSV: 81 ICA PSV: 91 ICA EDV: 31 ICA/CCA Ratio 1.12 Right vertebral artery is patent with normal direction of flow. No high-grade luminal narrowing or occlusion is identified on grayscale or color images. Left Carotid System: CCA PSV: 82 ICA PSV: 94 ICA EDV: 32 ICA/CCA Ratio 1.1 Left vertebral artery is patent with normal direction of flow. No high-grade luminal narrowing or occlusion is identified on grayscale or color images. IMPRESSION: No evidence of hemodynamically significant stenosis. Electronically signed by: Armando Richard MD (08/17/2018 2:53 PM) [facility]
== END | disposition home or self-care (01) ==
LOC: KCIC US 13:15
PROVIDERS: ATTEND Family Medicine
DX: I63.89 Other cerebral infarction (principal); G93.89 Other specified disorders of brain; I48.0 Paroxysmal atrial fibrillation; I10 Essential (primary) hypertension; R42 Dizziness and giddiness
CPT/HCPCS: 70551; 93880

== ENCOUNTER → 2018-10-01 | Outpatient (CLI) | payer BC ==
--- NOTE | 2018-10-01 16:47 | CARD ---
MR#: [id number] Date of Study: 10/01/2018 Ordering Physician: JIMI PABLO, Referring Physician: JIMI PABLO, Tech: Suly Orta APPROVED REPORT EXAM: Two-dimensional and M-mode echocardiogram with Doppler and color Doppler. Other Information Quality : GoodHR: 90bpm INDICATION Chronic arterial ischemic stroke RISK FACTORS Hypertension Hyperlipidemia 2D DIMENSIONS RVDd3.0 (2.9-3.5cm)Left Atrium(2D)3.7 (1.6-4.0cm) IVSd0.9 (0.7-1.1cm)Aortic Root(2D)3.1 (2.0-3.7cm) LVDd4.8 (3.9-5.9cm)LVOT Diameter2.0 (1.8-2.4cm) PWd1.0 (0.7-1.1cm)LVDs2.9 (2.5-4.0cm) FS (%) 38.8 %SV73.3 ml LVEF(%)69.0 (>50%) Aortic Valve AoV Peak Titi.138.4cm/sAoV VTI25.8cm AO Peak GR.7.7mmHgLVOT Peak Titi.67.7cm/s AO Mean GR.4mmHgAVA (VMAX)1.51cm2 Mitral Valve MV E Peak Gr.12mmHgMV E Mean Gr.4mmHg Pulmonary Valve PV Peak Ullelfii216.9cm/s Tricuspid Valve TR P. Ogwzdwzd763ma/sRAP [id number] TR Peak Gr.47qiXgHZYO82xeJd Pulmonary Vein S1 Tpjdjvru15.1cm/sD2 Mbfrtsxi921.9cm/s PVa [id number] LEFT VENTRICLE The left ventricle is normal size. There is normal left ventricular wall thickness. The left ventricu lar systolic function is normal and the ejection fraction is within normal range. The Ejection Fracti on is >55%. There is normal LV segmental wall motion. The left ventricular diastolic function and jay ling is normal for age. RIGHT VENTRICLE The right ventricle is normal size. There is normal right ventricular wall thickness. The right ventr icular systolic function is normal. ATRIA The left atrium is borderline dilated. The right atrium size is normal. The interatrial septum is int act with no evidence for an atrial septal defect or patent foramen ovale as noted on 2-D or Doppler i maging. AORTIC VALVE The aortic valve is calcified but opens well. Doppler and Color Flow revealed no significant aortic r egurgitation. There is no significant aortic valvular stenosis. MITRAL VALVE The mitral valve is thickened but opens well. Mitral annular calcification is mild. There is no evide nce of mitral valve prolapse. There is no mitral valve stenosis. Doppler and Color-flow revealed mild mitral regurgitation. TRICUSPID VALVE The tricuspid valve leaflets are thickened , but open well. Doppler and Color Flow revealed trace tri cuspid regurgitation with an estimated PAP of 37 mmHg. There is no tricuspid valve stenosis. PULMONIC VALVE The pulmonary valve is normal in structure and function. Doppler and Color Flow revealed no pulmonic valvular regurgitation. There is no pulmonic valvular stenosis. GREAT VESSELS The aortic root is normal in size. The IVC is normal in size and collapses >50% with inspiration. PERICARDIAL EFFUSION There is no evidence of significant pericardial effusion. Critical Notification Critical Value: No <Conclusion> The left ventricular systolic function is normal and the ejection fraction is within normal range. Th e Ejection Fraction is >55%. There is normal LV segmental wall motion. Signed by : Augusto Melendrez, Electronically Approved : 10/01/2018 16:46:41
== END | disposition home or self-care (01) ==
LOC: ECHO 13:37
PROVIDERS: ATTEND Psychiatry & Neurology Neurology with Special Qualifications in Child Neurology
DX: I08.0 Rheumatic disorders of both mitral and aortic valves (principal); I10 Essential (primary) hypertension; E78.5 Hyperlipidemia, unspecified
CPT/HCPCS: 93306

== ENCOUNTER → 2019-02-18 | Outpatient (CLI) | payer BC ==
[~2019-02-18] MED LIST changes: +CONTRAST GIVEN. MC PRN; +IOHEXOL 300 MG/ML 100ML VIAL. IV ONE; +NITR100C62 PO
[2019-02-18 13:46] LABS: CREATININE 0.9 mg/dL (0.6-1.0); GFR 59.7
--- NOTE | 2019-02-18 17:40 | RAD ---
Examination: CT ABDOMEN PELVIS WO/W History: Gross hematuria Comparison/Correlation: None Findings: Axial images of the abdomen and pelvis were obtained prior to and following IV contrast according to urogram protocol. Maximum intensity projection images provided. Sagittal and coronal reformatted images were provided. Post contrast imaging was performed in the nephrographic at the level of the abdomen and delayed excretory phases at the level of the abdomen and pelvis. Mitral annular calcification is present. Minimal right costophrenic sulcus linear atelectasis is present. Stomach is distended with fluid. Small hiatal hernia is present. Fluid in the esophagus which may represent reflux is evident. Cholecystectomy noted. Liver, spleen, pancreas, adrenal glands, and kidneys are normal. Appendix is normal. No enlarged abdominal or pelvic lymph nodes. Kidneys are normal. No radiopaque collecting system calculi or mass. Symmetric excretion of contrast noted. Ureters do not fully opacify on this exam. Minimal gas is present within the urinary bladder. Urinary bladder contour is unremarkable. Urinary bladder is only partially distended. Hysterectomy noted. Ecchymosis is present. Multilevel degenerative disc space narrowing of the lumbar spine. Impression: Small hiatal hernia. Minimal gas in the urinary bladder. Correlate with instrumentation. Correlate clinically otherwise. Diverticulosis. No masses identified. PQRS Compliance Statement: One or more of the following individualized dose reduction techniques were utilized for this examination: 1. Automated exposure control 2. Adjustment of the mA and/or kV according to patient size 3. Use of iterative reconstruction technique Electronically signed by: Jadiel Henao MD (02/18/2019 5:36 PM) [facility]
== END | disposition home or self-care (01) ==
LOC: CT 12:58
PROVIDERS: ATTEND Urology
DX: K44.9 Diaphragmatic hernia without obstruction or gangrene (principal); K57.10 Diverticulosis of small intestine without perforation or abscess without bleeding; R31.0 Gross hematuria; J98.11 Atelectasis; M51.36 Other intervertebral disc degeneration, lumbar region; M48.061 Spinal stenosis, lumbar region without neurogenic claudication; Z90.49 Acquired absence of other specified parts of digestive tract; Z90.710 Acquired absence of both cervix and uterus; M79.81 Nontraumatic hematoma of soft tissue; I10 Essential (primary) hypertension; Z79.01 Long term (current) use of anticoagulants; Z91.013 Allergy to seafood
CPT/HCPCS: 36415; 74178; 82565; Q9967

== ENCOUNTER 2019-03-28 05:07 | Emergency (ER) | payer BC ==
[~2019-03-28] VITALS: Ht 160 cm; Wt 86.6 kg
[~2019-03-28 05:07] MED LIST changes: -CONTRAST GIVEN. MC PRN; -IOHEXOL 300 MG/ML 100ML VIAL. IV ONE; -NITR100C62 PO
--- NOTE | 2019-03-28 05:28 | PHYS DOC ---
Past Medical History Past Medical History: GERD, High Cholesterol, Hypertension (KIMBERLEY ISAACS Jr. DO) Past Surgical History: Cholecystectomy (KIMBERLEY ISAACS Jr. DO) Alcohol Use: Rarely Drug Use: None (KIMBERLEY ISAACS Jr., DO) Adult General Chief Complaint Chief Complaint: BLOOD IN URINE [facility] HPI Patient is an 83-year-old female who presents with complaint of mild discomfort with urination and hematuria that started 2 days ago. She states that initially urine had been brown in color and then yesterday she started seeing blood in her urine. She states that this morning the urine has gotten to wear its looking like straight blood. She states that she has had 2 similar episodes in the recent past and was found to have urinary tract infections. She was seen by Dr. Vance who ultimately did a cystoscopy which was found to be unremarkable. She states that each time she was treated with antibiotics and hematuria would clear up. She states that this episode is the worst she is seen as far as the hematuria goes. She denies any abdominal pain, nausea or vomiting. She also denies any fever.[] (KIMBERLEY ISAACS Jr. DO) Review of Systems Review of Systems Constitutional: Denies fever or chills [] Respiratory: Denies cough or shortness of breath [] Cardiovascular: No additional information not addressed in HPI [] GI: Denies abdominal pain, nausea, vomiting or diarrhea [] : Positive dysuria and gross hematuria [] Musculoskeletal: Denies back pain or joint pain [] Neurologic: Denies headache, focal weakness or sensory changes [] All other systems were reviewed and found to be within normal limits, except as documented in this note. (KIMBERLEY ISAACS Jr. DO) Allergies Allergies Allergies Coded Allergies Type Severity Reaction Last Updated Verified Penicillins Allergy Intermediate Nausea and Vomiting 02/27/18 Yes iodine Allergy Intermediate 03/28/19 Yes shrimp Allergy Intermediate Nausea and Vomiting 02/27/18 Yes (SONIA DENNIS MD) Physical Exam Physical Exam Constitutional: Well developed, well nourished, no acute distress, non-toxic appearance. [] HENT: Normocephalic, atraumatic, bilateral external ears normal, oropharynx moist, no oral exudates, nose normal. [] Eyes: PERRLA, EOMI, conjunctiva normal, no discharge. [] Neck: Normal range of motion, no tenderness, supple. [] Cardiovascular: Mildly tachycardic rate with irregular rhythm[] Lungs & Thorax: Bilateral breath sounds clear to auscultation [] Abdomen: Bowel sounds normal, soft, no tenderness. [] Skin: Warm, dry, no erythema, no rash. [] Extremities: No tenderness, no cyanosis, no clubbing, ROM intact. [] Neurologic: Alert and oriented X 3, no focal deficits noted. [] (KIMBERLEY ISAACS Jr. DO) Current Patient Data Vital Signs Vital Signs Date Time Temp Pulse Resp B/P (MAP) Pulse Ox O2 Delivery O2 Flow Rate FiO2 03/28/19 06:14 162/80 (107) 03/28/19 05:53 98.1 96 34 95 Room Air 98.1 (SONIA DENNIS MD) Lab Values Laboratory Tests Test 03/28/19 05:45 White Blood Count 5.2 x10^3/uL (4.0-11.0) Red Blood Count 4.27 x10^6/uL (3.50-5.40) Hemoglobin 13.4 g/dL (12.0-15.5) Hematocrit 39.2 % (36.0-47.0) Mean Corpuscular Volume 92 fL (79-100) Mean Corpuscular Hemoglobin 31 pg (25-35) Mean Corpuscular Hemoglobin Concent 34 g/dL (31-37) Red Cell Distribution Width 13.4 % (11.5-14.5) Platelet Count 252 x10^3/uL (140-400) Neutrophils (%) (Auto) 55 % (31-73) Lymphocytes (%) (Auto) 30 % (24-48) Monocytes (%) (Auto) 11 % (0-9) H Eosinophils (%) (Auto) 3 % (0-3) Basophils (%) (Auto) 1 % (0-3) Neutrophils # (Auto) 2.9 x10^3/uL (1.8-7.7) Lymphocytes # (Auto) 1.6 x10^3/uL (1.0-4.8) Monocytes # (Auto) 0.5 x10^3/uL (0.0-1.1) Eosinophils # (Auto) 0.2 x10^3/uL (0.0-0.7) Basophils # (Auto) 0.0 x10^3/uL (0.0-0.2) Urine Collection Type Void Urine Color Red Urine Clarity Bloody Urine pH Urine Specific Maybee Urine Protein mg/dL (NEG-TRACE) Urine Glucose (UA) mg/dL (NEG) Urine Ketones (Stick) mg/dL (NEG) Urine Blood (NEG) Urine Nitrite (NEG) Urine Bilirubin (NEG) Urine Urobilinogen Dipstick mg/dL (0.2 mg/dL) Urine Leukocyte Esterase (NEG) Urine RBC Tntc /HPF (0-2) Urine WBC 5-10 /HPF (0-4) Urine Squamous Epithelial Cells Few /LPF Urine Bacteria Moderate /HPF (0-FEW) Sodium Level 141 mmol/L (136-145) Potassium Level 4.1 mmol/L (3.5-5.1) Chloride Level 104 mmol/L (98-107) Carbon Dioxide Level 26 mmol/L (21-32) Anion Gap 11 (6-14) Blood Urea Nitrogen 15 mg/dL (7-20) Creatinine 0.9 mg/dL (0.6-1.0) Estimated GFR (Cockcroft-Gault) 59.7 BUN/Creatinine Ratio 17 (6-20) Glucose Level 127 mg/dL (70-99) H Calcium Level 8.6 mg/dL (8.5-10.1) Total Bilirubin 0.3 mg/dL (0.2-1.0) Aspartate Amino Transferase (AST) 18 U/L (15-37) Alanine Aminotransferase (ALT) 14 U/L (14-59) Alkaline Phosphatase 73 U/L (46-116) Total Protein 7.9 g/dL (6.4-8.2) Albumin 3.8 g/dL (3.4-5.0) Albumin/Globulin Ratio 0.9 (1.0-1.7) L Laboratory Tests 03/28/19 05:45 Laboratory Tests 03/28/19 05:45 (SONIA DENNIS MD) EKG EKG [] (KIMBERLEY ISAACS Jr., DO) EKG Atrial fibrillation at a rate of 10 3 bpm, normal axis, normal intervals, there are no acute ischemic ST/T changes. (SONIA DENNIS MD) Radiology/Procedures Radiology/Procedures [] (KIMBERLEY ISAACS Jr., DO) Course & Med Decision Making Course & Med Decision Making Pertinent Labs and Imaging studies reviewed. (See chart for details) [] (KIMBERLEY ISAACS Jr. DO) Course & Med Decision Making Patient care was assumed at 6 AM shift change. Patient has had recurrent hematuria on and off for the past several months. She takes Xarelto for history of atrial fibrillation. She denies any dysuria or urinary frequency. She has had a CT scan about 6 weeks ago, report has been reviewed, she also had a cystoscopy about 2 weeks ago, and reports that biopsies were taken and negative. She follows with Dr. Vance with urology. She has no other complaints today other than her hematuria. Her labs have been reviewed. She might have a urinary tract infection and it is difficult to tell due to the amount of blood in her urine. I spoke with Dr. Oneal, the patient's manager control, and he recommended stopping her Xarelto for now. She'll be treated empirically for a UTI, which has been cause attributed to her bleeding in the past. The manager control's office will follow-up with the patient in the coming day or 2 for further instructions regarding her Xarelto. I discussed return precautions in detail with the patient and the need for close follow-up. (SONIA DENNIS MD) Dragon Disclaimer Dragon Disclaimer This electronic medical record was generated, in whole or in part, using a voice recognition dictation system. (KIMBERLEY ISAACS Jr. DO) Departure Departure Impression: Primary Impression: Gross hematuria Disposition: HOME, SELF-CARE Condition: STABLE Referrals: JESSY VALENZUELA MD (PCP) KIERSTEN VANCE MD, DONALD J MD Additional Instructions: Call both your manager control and your urologist for further management regarding the blood in your urine. Specifically, contact your manager control's office for further instructions regarding restarting your Xarelto, in the coming days. Return to medical care for any new or worsening symptoms, development of increasing blood in the urine, dizziness, lightheadedness, pain, fever, or any other new, or concerning symptoms. Scripts Nitrofurantoin Monohyd/M-Cryst (MACROBID 100 MG CAPSULE) 100 Mg Capsule 1 CAP PO BID for 7 Days, #14 CAP 0 Refills Prov: SONIA DENNIS MD 03/28/19 KIMBERLEY ISAACS Jr., DO Mar 28, 2019 05:28 SONIA DENNIS MD Mar 28, 2019 06:33
[2019-03-28 05:56] LABS: BASO % 1 % (0-3); EOS # 0.2 x10^3/uL (0.0-0.7); EOS % 3 % (0-3); HEMATOCRIT 39.2 % (36.0-47.0); HEMOGLOBIN 13.4 g/dL (12.0-15.5); LYMPH # 1.6 x10^3/uL (1.0-4.8); LYMPH % 30 % (24-48); MEAN CORPUSCULAR HEMOGLOBIN 31 pg (25-35); MEAN CORPUSCULAR HGB CONC 34 g/dL (31-37); MEAN CORPUSCULAR VOLUME 92 fL (79-100); MONO # 0.5 x10^3/uL (0.0-1.1); MONO % 11 % (0-9); NEUT # 2.9 x10^3/uL (1.8-7.7); NEUT % 55 % (31-73); PLATELET COUNT 252 x10^3/uL (140-400); RED BLOOD COUNT 4.27 x10^6/uL (3.50-5.40); RED CELL DISTRIBUTION WIDTH 13.4 % (11.5-14.5); WHITE BLOOD COUNT 5.2 x10^3/uL (4.0-11.0)
[2019-03-28 05:57] LABS: CLARITY,URINE BLOODY; COLOR,URINE RED
[2019-03-28 06:05] LABS: CALCIUM 8.6 mg/dL (8.5-10.1); CREATININE 0.9 mg/dL (0.6-1.0); GFR 59.7; POTASSIUM 4.1 mmol/L (3.5-5.1)
[2019-03-28 06:09] LABS: BACTERIA,URINE MODERATE /HPF (0-FEW); RBC,URINE TNTC /HPF (0-2); SQUAMOUS EPITHELIAL CELL,UR FEW /LPF
[2019-03-28 06:11] LABS: ALBUMIN 3.8 g/dL (3.4-5.0); ALBUMIN/GLOBULIN RATIO 0.9 (1.0-1.7); TOTAL BILIRUBIN 0.3 mg/dL (0.2-1.0); TOTAL PROTEIN 7.9 g/dL (6.4-8.2)
[2019-03-28 06:14] VITALS: BP 162/80
[2019-03-28] MEDS ORDERED: NITR100C62 PO (06:33)
--- NOTE | 2019-03-28 14:38 | EKG ---
[facility] [address] [place] [address] Test Date: 2019-03-28 Test Time: 06:23:05 Pat Name: NICOLA PRADHAN Department: Room: Gender: F Anaesthetic Technician: : [id number] Requested By: SONIA DENNIS Order Number: [id number] Reading MD: Measurements Intervals [place] Rate: 103 P: [place]: QRS: 17 QRSD: 76 T: 80 QT: 346 QTc: 455 Interpretive Statements IRREGULAR RHYTHM, NO P-WAVE FOUND QRS(T) CONTOUR ABNORMALITY CONSIDER ANTEROSEPTAL MYOCARDIAL DAMAGE CONSISTENT WITH INFERIOR INFARCT PROBABLY OLD ABNORMAL ECG RI6.01 No previous ECG available for comparison
== END 2019-03-28 06:45 | disposition home or self-care (01) ==
LOC: ER 05:07
DX: R31.0 Gross hematuria (principal); K21.9 Gastro-esophageal reflux disease without esophagitis; E78.00 Pure hypercholesterolemia, unspecified; I10 Essential (primary) hypertension; Z90.49 Acquired absence of other specified parts of digestive tract; Z88.0 Allergy status to penicillin; Z88.8 Allergy status to other drugs, medicaments and biological substances; Z91.013 Allergy to seafood
CPT/HCPCS: 36415; 80053; 81001; 85025; 87086; 93005; 99285-25

== ENCOUNTER → 2019-08-12 | Outpatient (CLI) | payer BC ==
[~2019-08-12] MED LIST changes: +NITR100C62 PO
--- NOTE | 2019-08-12 13:32 | KCIC ---
CHEST PA LATERAL Clinical indications: Cough since May despite antibiotics. COMPARISON: None available. Findings: No acute lung infiltrate or pleural effusion or pulmonary edema or lung mass or pneumothorax is seen. Mild cardiomegaly is evident. The pulmonary vasculature, mediastinum and both cristel are unremarkable. The osseous structures appear intact. Scoliosis is seen. Impression: Mild cardiomegaly. No acute lung infiltrate. Electronically signed by: Enzo Landry MD (08/12/2019 1:29 PM) [id number]
== END | disposition home or self-care (01) ==
LOC: KCIC 11:31
PROVIDERS: ATTEND Family Medicine
DX: I51.7 Cardiomegaly (principal); M41.84 Other forms of scoliosis, thoracic region
CPT/HCPCS: 71046